=== PATIENT | male | born 2000 | race Caucasian/White ===

== ENCOUNTER 2019-07-19 13:38 | Emergency (ER) | payer OTHER ==
[~2019-07-19] VITALS: Ht 177.8 cm; Wt 62.6 kg
[2019-07-19 14:26] LABS: BASOPHILS % (AUTO) 0.4 % (0.0-2.0); HEMATOCRIT 39 % (39-51); HEMOGLOBIN 13.3 g/dL (13.5-17.5); LYMPHOCYTES # (AUTO) 0.2 /CMM (0.8-4.8); LYMPHOCYTES % (AUTO) 4.8 % (20.0-44.0); MEAN CORPUSCULAR HGB CONC 34 g/dl (31.0-36.0); MEAN CORPUSCULAR VOLUME 89 fL (80-96); MONOCYTES # (AUTO) 0.6 /CMM (0.1-1.30); MONOCYTES % (AUTO) 15.1 % (2.0-12.0); NEUTROPHILS % (AUTO) 79.7 % (43.0-81.0); PLATELET COUNT (AUTO) 214 /CMM (150-450); WHITE BLOOD COUNT (AUTO) 3.8 K/uL (4.3-11.0)
[2019-07-19] MEDS ORDERED: IV NS 0.9% 1,000 ML BAG IV ONE (14:30)
--- NOTE | 2019-07-19 14:33 | NUR ---
PT REC'D TO ER C/O FLU LIKE SYM FOR 2 DAYS IV STARED RT AC 20G LABS SENT TO LAB IV NS BOLUS GIVEN
[2019-07-19 14:39] LABS: CALCIUM, SERUM 9.2 mg/dL (8.5-10.1); CREATININE 0.8 mg/dL (0.6-1.3); POTASSIUM 3.4 mmol/L (3.5-5.1)
--- NOTE | 2019-07-19 14:56 | NUR ---
NS UP PER MD RAPID STREP DONE SENT TO LAB
--- NOTE | 2019-07-19 15:25 | NUR ---
AWAITING EVALUATION BY ER PROVIDER.
[2019-07-19] MEDS ORDERED: ONDANSETRON HCL/PF 4 MG/2 ML VIAL ONE (15:28)
[2019-07-19] MEDS ORDERED: KETOROLAC TROMETHAMINE INJ 30 MG/ML VIAL ONE (15:28)
[2019-07-19] MEDS ORDERED: acetaZOLAMIDE 250 MG TABLET PO SCH (15:30)
[2019-07-19] MEDS ORDERED: KETOROLAC TROMETHAMINE INJ 30 MG/ML VIAL IV ONE (15:30)
[2019-07-19] MEDS ORDERED: LORAZEPAM INJ 2 MG/ML VIAL IV ONE (15:30)
[2019-07-19] MEDS ORDERED: ONDANSETRON HCL/PF 4 MG/2 ML VIAL IV ONE (15:30)
[2019-07-19] MEDS ORDERED: acetaZOLAMIDE SODIUM 500 MG/VIAL VIAL ONE (15:42)
[2019-07-19 16:14] LABS: BAND % (MANUAL) 1 % (0.0-5.0); EOSINOPHILS % (MANUAL) 1 % (0-4); LYMPHOCYTES % (MANUAL) 6 % (16-48); MONOCYTES % (MANUAL) 15 % (0-11.0); NEUTROPHILS % (MANUAL) 76 (42-76); REACTIVE LYMPHOCYTES 1 % (0-0)
--- NOTE | 2019-07-19 16:14 | NUR ---
ATIVAN 1 MG IVP GIVEN FOR ANXIETY PT CRYING
--- NOTE | 2019-07-19 16:23 | NUR ---
PHARMACY NOTIFIED PULLED FROM [facility] SKINNER 1 MGIVP WASTED WITH 1MG GENA BROOKS . GIVEN TO THIS PATIENT CORRECT VANDANA BROOKS OK WITH PHARMACY
--- NOTE | 2019-07-19 17:00 | NUR ---
PT AWAKE ALERT AMB TO BR VOIDED BACK TO BED IV removed. Catheter intact and site benign. Pressure and 4x4 applied to site. No bleeding noted.PT. VERBALIZED UNDERSTANDING OF AFTERCARE INSTRUCTIONS.
[2019-07-19 17:07] VITALS: BP 109/64
== END 2019-07-19 17:07 | disposition home or self-care (01) ==
LOC: ER 13:43
DX: T70.20XA Unspecified effects of high altitude, initial encounter (principal); F41.9 Anxiety disorder, unspecified; R11.2 Nausea with vomiting, unspecified; F31.9 Bipolar disorder, unspecified; X58.XXXA Exposure to other specified factors, initial encounter; Y93.89 Activity, other specified; Y92.89 Other specified places as the place of occurrence of the external cause; Y99.8 Other external cause status
CPT/HCPCS: 36415; 71045; 80048; 85025; 87804 ×2; 93005 ×2; 96361; 96374; 96375; 99284; J1120; J1885; J2060; J2405; J7030